=== PATIENT | female | born 1940 | race Caucasian/White ===

== ENCOUNTER 2016-08-07 20:33 | Emergency (ER) | payer OTHER, BC ==
[~2016-08-07] VITALS: Ht 170.2 cm; Wt 81.7 kg
[2016-08-07] MEDS ORDERED: HYDROCODONE-AP1 EAC6 PO (21:05)
[2016-08-07] MEDS ORDERED: FLEXERIL PO (21:05)
[2016-08-07 21:50] VITALS: BP 182/84
== END 2016-08-07 21:52 | disposition home or self-care (01) ==
LOC: ER 20:33
DX: M43.6 Torticollis (principal); M19.90 Unspecified osteoarthritis, unspecified site; Z90.710 Acquired absence of both cervix and uterus; Z88.0 Allergy status to penicillin